=== PATIENT | female | born 1950 | race Caucasian/White ===

== ENCOUNTER 2017-04-22 16:53 | Inpatient (IN) | payer MEDICARE ==
[~2017-04-22] VITALS: Ht 160 cm; Wt 68.9 kg
[~2017-04-22 16:53] MED LIST: ALPR0.5T6 PO; GLUC1TAB27 PO; METH10003 PO; MULT-316 PO; SUMA25TA4 PO; TURM500C7 PO
[2017-04-22] MEDS ORDERED: ASPIRIN 81 MG TABLET CHEW ONE (17:23)
[2017-04-22] MEDS ORDERED: PLEASE ENTER ALLERGIES MC SCH ×2 (17:30)
[2017-04-22] MEDS ORDERED: ASPIRIN 81 MG TABLET CHEW PO ONE (17:30)
[2017-04-22 17:43] LABS: BLOOD UREA NITROGEN 22 mg/dL (7-18)
[2017-04-22 17:49] LABS: IS PT STATUS REG ER OR PRE ER? YES
[2017-04-22] MEDS ORDERED: morphine SULFATE 10 MG/ML, 1ML IVPush PRN (19:00)
[2017-04-22] MEDS ORDERED: POLYETHYLENE GLYCOL 17 GM PACKET PO PRN (19:00)
[2017-04-22] MEDS ORDERED: NITROGLYCERIN 0.4 MG BOTTLE (25 TABS) SL PRN (19:00)
[2017-04-22] MEDS ORDERED: ACETAMINOPHEN 325 MG TABLET PO PRN (19:00)
[2017-04-22] MEDS ORDERED: ONDANSETRON 2MG/ML, 2ML IVPush PRN (19:00)
[2017-04-22] MEDS ORDERED: SUMATRIPTAN 25 MG TABLET PO PRN (19:00)
[2017-04-22] MEDS ORDERED: BISACODYL 10 MG SUPP PR PRN (19:00)
[2017-04-22 19:36] VITALS: BP 111/73
[2017-04-22] MEDS ORDERED: ANAS1TAB PO (19:43)
[2017-04-22 19:45] VITALS: BP 100/68
[2017-04-22] MEDS: SODIUM CHLORIDE FLUSH 3ML SYRINGE IVF SCH (21:00)
[2017-04-22] MEDS: HEPARIN 5,000 UNITS/ML, 1ML SQ SCH (21:57)
[2017-04-22 23:21] LABS: IS PT STATUS REG ER OR PRE ER? NO
[2017-04-23 00:49] VITALS: BP 101/64
[2017-04-23 05:43] LABS: IS PT STATUS REG ER OR PRE ER? NO
[2017-04-23] MEDS ORDERED: ASPIRIN 81 MG TABLET EC PO SCH (06:00)
[2017-04-23] MEDS: HEPARIN 5,000 UNITS/ML, 1ML SQ SCH (06:05)
[2017-04-23] MEDS ORDERED: REGADENOSON 0.4 MG/5 ML SYRINGE ONE (08:10)
[2017-04-23 08:26] VITALS: BP 112/78
[2017-04-23] MEDS ORDERED: ANASTROZOLE 1 MG TABLET PO SCH (09:00)
[2017-04-23] MEDS ORDERED: TEMPLATE NON-FORMULARY MED. (Gluc Su/Chondro Su A/Vit C/Mn** (Glucosamine Chondroitin Tab PO SCH (09:00)
[2017-04-23] MEDS ORDERED: MULTIVITAMINS WITH IRON TABLET PO SCH (09:00)
[2017-04-23] MEDS ORDERED: SENNA/DOCUSATE TABLET PO SCH (09:00)
[2017-04-23] MEDS: SODIUM CHLORIDE FLUSH 3ML SYRINGE IVF SCH (11:00)
[2017-04-23 13:03] VITALS: BP 97/66
== END 2017-04-23 15:48 | disposition home or self-care (01) | DRG 562 ==
LOC: ED 17:44 → EDIP 17:45 → ED 18:45 → 5SO 19:19
PROVIDERS: ADMIT Internal Medicine; ATTEND Internal Medicine
DX: S29.011A Strain of muscle and tendon of front wall of thorax, initial encounter (principal); N17.0 Acute kidney failure with tubular necrosis; R00.2 Palpitations; Z85.3 Personal history of malignant neoplasm of breast; G43.909 Migraine, unspecified, not intractable, without status migrainosus; Z91.048 Other nonmedicinal substance allergy status; I49.3 Ventricular premature depolarization; I25.9 Chronic ischemic heart disease, unspecified
CPT/HCPCS: 36415; 71010; 78452; 80048; 80061; 82040; 84439; 84443; 84484; 85025; 85379; 86141; 93005; 93017; 99285; J1644; J2785; A9502; C9898

== ENCOUNTER → 2019-01-23 | Outpatient (CLI) | payer MEDICARE ==
[~2019-01-23] MED LIST changes: +ANAS1TAB PO
== END | disposition home or self-care (01) ==
LOC: CFH 10:12
PROVIDERS: ATTEND Internal Medicine
DX: Z12.31 Encounter for screening mammogram for malignant neoplasm of breast (principal)
CPT/HCPCS: 77063; 77067

== ENCOUNTER → 2020-04-04 | Outpatient (CLI) | payer MEDICARE | END | disposition home or self-care (01) | LOC: CFH 12:51 | PROVIDERS: ATTEND Internal Medicine | DX: Z12.31 Encounter for screening mammogram for malignant neoplasm of breast (principal) | CPT/HCPCS: 77063; 77067 ==